=== PATIENT | male | born 1985 | race Hispanic/Latino ===

== ENCOUNTER → 2019-04-15 | Outpatient (CLI) | payer BC, OTHER | END | disposition home or self-care (01) | LOC: RAH 14:51 | PROVIDERS: ATTEND Family Medicine | DX: M77.31 Calcaneal spur, right foot (principal); M25.561 Pain in right knee; M19.071 Primary osteoarthritis, right ankle and foot | CPT/HCPCS: 73562; 73590 ==

== ENCOUNTER 2022-12-20 13:14 | Emergency (ER) | payer BC, OTHER ==
[~2022-12-20] VITALS: Ht 182.9 cm; Wt 144.2 kg
[2022-12-20] MEDS ORDERED: FAMOTIDINE 20MG VIAL IV ONE (14:00)
[2022-12-20] MEDS ORDERED: MORPHINE 4 MG SYG IVP ONE (14:00)
[2022-12-20] MEDS ORDERED: ONDANSETRON 4MG INJ IVP ONE (14:00)
[2022-12-20] MEDS ORDERED: 0.9%NACL 1000ML 1,000 ML IV ONE ×2 (14:00)
[2022-12-20] MEDS ORDERED: ACETAMINOPHEN 500 MG TABLET PO ONE (14:00)
[2022-12-20 14:15] LABS: APPEARANCE,URINE CLEAR (CLEAR); BILIRUBIN,URINE NEGATIVE (NEGATIVE); COLOR,URINE LIGHT-YELLOW (YELLOW); GLUCOSE, URINE (UA) NEGATIVE (NEGATIVE); KETONES,URINE NEGATIVE (NEGATIVE); LEUKOCYTE ESTERASE ,URINE NEGATIVE Leu/uL (NEGATIVE); NITRATE,URINE NEGATIVE (NEGATIVE); OCCULT BLOOD,URINE NEGATIVE (NEGATIVE); PROTEIN,URINE NEGATIVE (NEGATIVE); UROBILINOGEN,URINE 0.2 mg/dL (0.2-1.0)
[2022-12-20 14:38] LABS: CREATININE 0.9 mg/dL (0.5-1.5); POTASSIUM 3.5 mmol/L (3.5-5.1)
[2022-12-20 14:42] LABS: ALBUMIN 3.9 g/dL (3.5-5.0); TOTAL PROTEIN, SERUM 7.9 g/dL (6.0-8.3)
[2022-12-20 16:09] LABS: BASOPHILS % (AUTO) 0.3 % (0.0-5.0); HEMATOCRIT 42.9 % (42-54); LYMPHOCYTES % (AUTO) 6.7 % (21.0-51.0); MEAN CORPUSCULAR HEMOGLOBIN 27.2 pg (27.0-33.0); MEAN CORPUSCULAR HGB CONC 34.7 g/dL (32.0-36.0); MEAN CORPUSCULAR VOLUME 78.3 fL (79-99); MONOCYTES % (AUTO) 5.5 % (3.0-13.0); NEUTROPHILS % (AUTO) 86.2 % (40.0-77.0); PLATELET COUNT (AUTO) 138 K/uL (130-400); RED BLOOD CELL COUNT(AUTO) 5.48 MIL/uL (4.50-6.20); RED CELL DISTRIBUTION WIDTH 13.7 % (11.0-15.5); WHITE BLOOD COUNT (AUTO) 6.3 K/uL (4.8-10.8)
[2022-12-20] MEDS ORDERED: CIPR-278 PO (16:50)
[2022-12-20] MEDS ORDERED: ONDA4TAB10 PO (16:50)
[2022-12-20] MEDS ORDERED: ACET-66 PO (16:50)
[2022-12-20] MEDS ORDERED: DICY20TA2 PO (16:50)
[2022-12-20 17:40] VITALS: BP 132/66
== END 2022-12-20 17:50 | disposition home or self-care (01) ==
LOC: EDH 13:14
DX: A05.9 Bacterial foodborne intoxication, unspecified (principal); E78.00 Pure hypercholesterolemia, unspecified; K21.9 Gastro-esophageal reflux disease without esophagitis
CPT/HCPCS: 99284; 74176; 96374; 96375; 96361; 84484; 80053; 83690; 85025; 87040 ×2; 82948; 83605; 81003; 36415; 93005; J3490; J7030; J2405; J2270